=== PATIENT | male | born 1955 | race Caucasian/White ===

== ENCOUNTER 2017-12-05 11:36 | Inpatient (IN) | payer OTHER ==
--- NOTE | 2017-12-05 12:50 | PDOC ---
History of Present Illness - General Chief Complaint: Injury Stated Complaint: TOE INJURY Time Seen by Provider: 12/05/17 12:00 History Source: Patient Exam Limitations: No Limitations - History of Present Illness Initial Comments: 12/05/17 12:42 62 yr male with c/o toe injury one week ago dropped a garbage can on the foot. Pt has pain and swelling. Past History - Past Medical History Allergies/Adverse Reactions: Allergies Allergy/AdvReac Type Severity Reaction Status Date / Time No Known Allergies Allergy Verified 12/05/17 11:43 Home Medications: Ambulatory Orders Finasteride 5 mg PO DAILY 05/07/15 Lisinopril/Hydrochlorothiazide [Lisinopril-Hctz 10-12.5 mg Tab] 1 each PO DAILY 05/07/15 Metoprolol Succinate [Toprol XL -] 100 mg PO DAILY 05/07/15 Simvastatin [Zocor -] 20 mg PO HS 05/07/15 Tamsulosin HCl 0.4 mg PO DAILY 05/07/15 Warfarin Na [Coumadin -] 9 mg PO DAILY@1800 12/05/17 Cardiac Disorders: Yes (P.E) COPD: No Disorders: Yes (ENLARGED PROSTATE.) HTN: Yes - Surgical History Cardiac Surgery: Yes (3 STENTS. B/L CAROTID ENDARDERECOMTIES.) - Suicide/Smoking/Psychosocial Hx Smoking History: Never smoked Have you smoked in the past 12 months: No Information on smoking cessation initiated: No Hx Alcohol Use: No Drug/Substance Use Hx: No Substance Use Type: None Hx Substance Use Treatment: No *Physical Exam - Vital Signs Last Vital Signs Temp Pulse Resp BP Pulse Ox 98.0 F 85 18 136/86 100 12/05/17 11:43 12/05/17 11:43 12/05/17 11:43 12/05/17 11:43 12/05/17 11:43 - Physical Exam General Appearance: Yes: Nourished, Appropriately Dressed HEENT: positive: EOMI, SABRINA Neck: positive: Supple. negative: Tender Respiratory/Chest: positive: Lungs Clear, Normal Breath Sounds. negative: Chest Tender Cardiovascular: positive: Regular Rhythm, Regular Rate Extremity: positive: Normal Capillary Refill, Tender (right great toe TTP with swelling, erythema ) Integumentary: positive: Normal Color, Dry, Warm Neurologic: positive: Fully Oriented, Alert, Normal Mood/Affect, Normal Response , Motor Strength 01/14 ED Treatment Course - LABORATORY CBC & Chemistry Diagram: 12/05/17 16:30 12/05/17 16:30 - RADIOLOGY Radiology Studies Ordered: Category Date Time Status FOOT-RIGHT [RAD] Stat Radiology 12/05/17 12:21 Ordered Medical Decision Making - Medical Decision Making 12/05/17 12:42 cc: right foot injury one week ago will get xray to r/o fracture will check INR possible r/o DVT if xray is negative 12/05/17 15:44 spoke to pt's PMD who agrees pt should be admitted and started on heparin , aware pt id on coumaidn and is therapuetic. pt aware signed out to Ronel Saenz NP in the main ER nurse Leatha zhu. pt placed in vertical 12/05/17 16:45 *DC/Admit/Observation/Transfer Diagnosis at time of Disposition: Popliteal artery occlusion, right Cellulitis Qualifiers: Site of cellulitis: extremity Site of cellulitis of extremity: lower extremity Laterality: right Qualified Code(s): L03.115 - Cellulitis of right lower limb - Discharge Dispostion Condition at time of disposition: Stable - Referrals - Patient Instructions - Post Discharge Activity
[2017-12-05 13:44] LABS: INR 3.01 (0.82-1.09)
[2017-12-05 16:54] LABS: HEMATOCRIT 44.3 % (35.4-49); HEMOGLOBIN 14.9 GM/dL (11.7-16.9); MCH 30.3 pg (25.7-33.7); MCHC 33.7 g/dl (32.0-35.9); MEAN CELL VOLUME 89.8 fl (80-96); MEAN PLT VOLUME 8.5 fl (7.5-11.1); PLATELET COUNT 223 K/MM3 (134-434); RBC 4.93 M/mm3 (4.00-5.60); RDW 14.5 % (11.9-15.9); WHITE BLOOD COUNT 7.6 K/mm3 (4.0-10.0)
[2017-12-05 17:41] LABS: ALBUMIN 4.2 g/dl (3.4-5.0); ANION GAP 9 (8-16); BILIRUBIN,TOTAL 0.4 mg/dL (0.2-1.0); BLOOD UREA NITROGEN 19 mg/dL (7-18); CHLORIDE 101 mmol/L (98-107); CO2 29 mmol/L (21-32); CREATININE 1.1 mg/dL (0.7-1.3); GLUCOSE,RANDOM 93 mg/dL (74-106); POTASSIUM 4.1 mmol/L (3.5-5.1); SGOT/AST 13 U/L (15-37); SGPT/ALT 22 U/L (12-78); SODIUM 139 mmol/L (136-145); TOT PROT 7.4 g/dl (6.4-8.2)
[2017-12-05 17:42] LABS: ALK PHOS 59 U/L (45-117)
--- NOTE | 2017-12-05 18:35 | PDOC ---
*Physical Exam - Vital Signs Last Vital Signs Temp Pulse Resp BP Pulse Ox 98.0 F 85 18 136/86 100 12/05/17 11:43 12/05/17 11:43 12/05/17 11:43 12/05/17 11:43 12/05/17 11:43 - Physical Exam Comments: 12/05/17 18:17 Patient was sent from the back in fast track after being found to have a positive new interval development of a thrombus to the right popliteal vein as well as the length of the right femoral vein which may be chronic based on his representation. The request was for the patient to be admitted per the attending , Dr. Ibarra. After several attempts for me to reach out to Dr. Ibarra to discuss the case further and after discussing the case with the patient patient decision to be admitted for observation with a vascular surgeon consult for possible thrombectomy with possible conversion from INR to PTT with Coumadin versus heparin. Call placed for hospitalist for observation admission. ED Treatment Course - LABORATORY CBC & Chemistry Diagram: 12/05/17 16:30 12/05/17 16:30 - ADDITIONAL ORDERS Additional order review: Laboratory Results 12/05/17 12/05/17 12/05/17 16:30 16:30 13:27 PT with INR 34.00 H INR 3.01 H PTT (Actin FS) 51.8 H Sodium 139 Potassium 4.1 Chloride 101 Carbon Dioxide 29 Anion Gap 9 BUN 19 H D Creatinine 1.1 Creat Clearance w eGFR > 60 Random Glucose 93 Calcium 9.0 Total Bilirubin 0.4 AST 13 L D ALT 22 D Alkaline Phosphatase 59 Total Protein 7.4 D Albumin 4.2 D 12/05/17 16:30 RBC 4.93 D MCV 89.8 MCHC 33.7 RDW 14.5 MPV 8.5 *DC/Admit/Observation/Transfer Diagnosis at time of Disposition: Popliteal artery occlusion, right - Discharge Dispostion Condition at time of disposition: Stable Admit: Yes - Referrals Referrals: Cuba Tello MD [Primary Care Provider] - - Patient Instructions - Post Discharge Activity
--- NOTE | 2017-12-05 19:32 | PDOC ---
*Physical Exam - Vital Signs Last Vital Signs Temp Pulse Resp BP Pulse Ox 98.0 F 85 18 136/86 100 12/05/17 11:43 12/05/17 11:43 12/05/17 11:43 12/05/17 11:43 12/05/17 11:43 ED Treatment Course - LABORATORY CBC & Chemistry Diagram: 12/05/17 16:30 12/05/17 16:30 - ADDITIONAL ORDERS Additional order review: Laboratory Results 12/05/17 12/05/17 12/05/17 16:30 16:30 13:27 PT with INR 34.00 H INR 3.01 H PTT (Actin FS) 51.8 H Sodium 139 Potassium 4.1 Chloride 101 Carbon Dioxide 29 Anion Gap 9 BUN 19 H D Creatinine 1.1 Creat Clearance w eGFR > 60 Random Glucose 93 Calcium 9.0 Total Bilirubin 0.4 AST 13 L D ALT 22 D Alkaline Phosphatase 59 Total Protein 7.4 D Albumin 4.2 D 12/05/17 16:30 RBC 4.93 D MCV 89.8 MCHC 33.7 RDW 14.5 MPV 8.5 Medical Decision Making - Medical Decision Making 12/05/17 19:35 patient signed out to Dr. Dupont. pending admission. *DC/Admit/Observation/Transfer Diagnosis at time of Disposition: Popliteal artery occlusion, right - Discharge Dispostion Condition at time of disposition: Stable Admit: Yes - Referrals Referrals: Cuba Tello MD [Primary Care Provider] - - Patient Instructions - Post Discharge Activity
--- NOTE | 2017-12-05 20:58 | HP ---
Admitting History and Physical - Primary Care Physician PCP: Rosario Dupont - Admission Chief Complaint: garbage can fell on R foot History of Present Illness: Patient was sent from the back in fast track after being found to have a positive new interval development of a thrombus to the right popliteal vein as well as the length of the right femoral vein which may be chronic based on his representation. The request was for the patient to be admitted per the attending , Dr. Ibarra. - Past Medical History Cardiovascular: Yes: CAD Renal/: Yes: BPH - Past Surgical History Past Surgical History: Yes: Carotid Endarterectomy - Smoking History Smoking history: Never smoked Have you smoked in the past 12 months: No - Alcohol/Substance Use Hx Alcohol Use: No Home Medications - Allergies Allergies/Adverse Reactions: Allergies Allergy/AdvReac Type Severity Reaction Status Date / Time No Known Allergies Allergy Verified 12/05/17 11:43 - Home Medications Home Medications: Ambulatory Orders Finasteride 5 mg PO DAILY 05/07/15 Lisinopril/Hydrochlorothiazide [Lisinopril-Hctz 10-12.5 mg Tab] 1 each PO DAILY 05/07/15 Metoprolol Succinate [Toprol XL -] 100 mg PO DAILY 05/07/15 Simvastatin [Zocor -] 20 mg PO HS 05/07/15 Tamsulosin HCl 0.4 mg PO DAILY 05/07/15 Warfarin Na [Coumadin -] 9 mg PO DAILY@1800 12/05/17 Family Disease History - Family Disease History Family Disease History: CA: Mother (ovarian) Physical Examination Vital Signs: Vital Signs Temperature 98.0 F 12/05/17 11:43 Pulse Rate 85 12/05/17 11:43 Respiratory Rate 18 12/05/17 11:43 Blood Pressure 136/86 12/05/17 11:43 O2 Sat by Pulse Oximetry (%) 100 12/05/17 11:43 Constitutional: Yes: No Distress HENT: Yes: Atraumatic Neck: Yes: Supple Cardiovascular: Yes: Regular Rate and Rhythm Respiratory: Yes: CTA Bilaterally Gastrointestinal: Yes: Normal Bowel Sounds Extremities: Yes: Other (R foot ...big toe red/warm) Edema: RLE: 1+ (R foot) Neurological: Yes: Alert, Oriented Labs: CBC, BMP 12/05/17 16:30 12/05/17 16:30 Problem List - Problems (1) Popliteal artery occlusion, right Assessment/Plan: probably old have been on coumadin will get hematology opinion Code(s): I70.201 - UNSP ATHSCL [place] ARTERIES OF EXTREMITIES, RIGHT LEG (2) Cellulitis of right foot Assessment/Plan: iv abx id consult xray done Code(s): L03.115 - CELLULITIS OF RIGHT LOWER LIMB Assessment/Plan Laboratory Tests 12/05/17 12/05/17 12/05/17 13:27 16:30 16:30 WBC 7.6 RBC 4.93 D Hgb 14.9 D Hct 44.3 D MCV 89.8 MCH 30.3 MCHC 33.7 RDW 14.5 Plt Count 223 D MPV 8.5 PT with INR 34.00 H INR 3.01 H PTT (Actin FS) Sodium 139 Potassium 4.1 Chloride 101 Carbon Dioxide 29 Anion Gap 9 BUN 19 H D Creatinine 1.1 Creat Clearance w eGFR > 60 Random Glucose 93 Calcium 9.0 Total Bilirubin 0.4 AST 13 L D ALT 22 D Alkaline Phosphatase 59 Total Protein 7.4 D Albumin 4.2 D 12/05/17 16:30 WBC RBC Hgb Hct MCV MCH MCHC RDW Plt Count MPV PT with INR INR PTT (Actin FS) 51.8 H Sodium Potassium Chloride Carbon Dioxide Anion Gap BUN Creatinine Creat Clearance w eGFR Random Glucose Calcium Total Bilirubin AST ALT Alkaline Phosphatase Total Protein Albumin Active Medications Generic Name Dose Route Start Last Admin Trade Name Freq PRN Reason Stop Dose Admin Atorvastatin Calcium 10 mg 12/05/17 22:00 Lipitor - PO HS PEREZ Enoxaparin Sodium 100 mg 12/05/17 22:00 Lovenox - SQ BID PEREZ Finasteride 5 mg 12/06/17 10:00 Proscar - PO DAILY PEREZ Hydrochlorothiazide 12.5 mg 12/06/17 10:00 Hctz - PO DAILY PEREZ Lisinopril 10 mg 12/06/17 10:00 Prinivil PO DAILY PEREZ Metoprolol Succinate 100 mg 12/06/17 10:00 Toprol Xl - PO DAILY [facility] Tamsulosin HCl 0.4 mg 12/06/17 08:30 Flomax - PO DAILY@0830 [facility]
[2017-12-05] MEDS ORDERED: WARFARIN NA 7.5 MG TABLET (FP) PO ONE (21:45)
[2017-12-05] MEDS ORDERED: ENOXAPARIN NA (PORCINE) 100 MG/1 ML DISP.SYRIN SQ SCH (22:00)
[2017-12-05] MEDS ORDERED: CEFTRIAXONE 1 GM/50 ML BAG ONE (22:22)
[2017-12-05] MEDS: ATORVASTATIN CA 10 MG TABLET (FP) PO SCH (22:40)
[2017-12-05] MEDS: CEFTRIAXONE 1 GM in DEXTROSE 5%-WATER - 50 ML IVPB SCH (23:00)
--- NOTE | 2017-12-05 23:45 | CONSULT ---
Consult - text type - Consultation Consultation Note: 62 yr male with c/o toe injury one week ago dropped a garbage can on the foot. Pt has pain and swelling. rt. toe/foot Duplex shows new dital popliteal DVT and probable chronic rt. 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 followed by Dr. Fred mckoy Disorders: Yes (ENLARGED PROSTATE.) HTN: Yes hyperlipidemia CAD h/o coronary stent h/o carotid endarterectomies - Surgical History Cardiac Surgery: Yes (3 STENTS. B/L CAROTID ENDARDERECOMTIES.) - Suicide/Smoking/Psychosocial Hx Smoking History: Never smoked Family history Mother had ovarian cancer *Physical Exam - Vital Signs Last Vital Signs Temp Pulse Resp BP Pulse Ox 98.0 F 85 18 136/86 100 12/05/17 11:43 12/05/17 11:43 12/05/17 11:43 12/05/17 11:43 12/05/17 11:43 - Physical Exam General Appearance: Yes: Nourished, Appropriately Dressed HEENT: positive: EOMI, SABRINA Neck: positive: Supple. negative: Tender Respiratory/Chest: positive: Lungs Clear, Normal Breath Sounds. 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 foot, ? cellulitis + new distal popliteal DVT, and probable chronic rt. femoral DVT Patient reports therapeutic INRs on 9mg coumadin daily---last being 1 month ago. INR today -2.9. s/p coumadin 7.5mg Given clinical scenario --? failure of coumadin given therapeutic INRs and new popliteal DVT would consider holding off coumadin and switcxhing to lovenox would check CT scan c/a/p given recent wt. loss( reports intentionsl) but given recurrent DVt would check age appropriate cancer screening as out patient--colonoscopy/prostate exam
[2017-12-06 00:22] LABS: INR 2.9 (0.82-1.09); PROTHROMBIN TIME (PATIENT) 32.8 SEC (9.98-11.88)
[2017-12-06] MEDS: SODIUM CHLORIDE 1,000 ML IV SCH (03:38)
[2017-12-06] MEDS ORDERED: oxyCODONE HCL 5 MG TABLET PO ONE (04:15)
[2017-12-06] MEDS ORDERED: ACETAMINOPHEN 325 MG TABLET (FP) PO ONE (04:15)
[2017-12-06 07:11] VITALS: BMI 32.1
[2017-12-06 07:57] LABS: BASO % 0.8 % (0-2.0); EOS % 4.9 % (0-4.5); HEMATOCRIT 41.2 % (35.4-49); HEMOGLOBIN 13.6 GM/dL (11.7-16.9); LYMPH % 20.4 % (8-40); MCH 29.8 pg (25.7-33.7); MEAN CELL VOLUME 90.3 fl (80-96); NEUT % 57.9 % (42.8-82.8); PLATELET COUNT 215 K/MM3 (134-434); RBC 4.56 M/mm3 (4.00-5.60); RDW 14.5 % (11.9-15.9)
[2017-12-06 08:09] LABS: INR 2.83 (0.82-1.09)
[2017-12-06 08:15] LABS: CHLORIDE 103 mmol/L (98-107); POTASSIUM 3.4 mmol/L (3.5-5.1); SODIUM 138 mmol/L (136-145)
[2017-12-06 08:20] LABS: ALBUMIN 3.5 g/dl (3.4-5.0); ALK PHOS 53 U/L (45-117); ANION GAP 5 (8-16); BILIRUBIN,TOTAL 0.2 mg/dL (0.2-1.0); BLOOD UREA NITROGEN 22 mg/dL (7-18); CALCIUM 8.3 mg/dL (8.5-10.1); CO2 30 mmol/L (21-32); CREATININE 1.2 mg/dL (0.7-1.3); GLUCOSE,RANDOM 137 mg/dL (74-106); SGOT/AST 10 U/L (15-37); SGPT/ALT 17 U/L (12-78); TOT PROT 6.2 g/dl (6.4-8.2)
[2017-12-06] MEDS: HYDROCHLOROTHIAZIDE 12.5 MG CAPSULE (FP) PO SCH (09:18)
[2017-12-06] MEDS: TAMSULOSIN HCL 0.4 MG CAP.ER.24H (FP) PO SCH (09:18)
[2017-12-06] MEDS: LISINOPRIL 10 MG TABLET (FP) PO SCH (09:18)
[2017-12-06] MEDS: FINASTERIDE 5 MG TABLET (FP) PO SCH (09:18)
[2017-12-06] MEDS ORDERED: PATIENT'S OWN MEDICATION (NON-FORMULARY) (Lisinopril/Hydrochlorothiazide [Lisinopril-Hctz PO SCH (10:00)
--- NOTE | 2017-12-06 10:58 | CONSULT ---
Consult - History of Present Illness History of Present Illness: 62 year old man with history of right leg DVT and PE in 2015 treated by pulmonary thrombolysis and placement of permanent IVC filter. He has remained on Coumadin with therapeutic INR. He was admitted for right toe pin after dropping a garbage pain on his foot. A repeat Venous Duplex showed the old thrombus in the femoral vein and was read as showing new DVT. - Past Medical History Cardio/Vascular: Yes: CAD Renal/: Yes: BPH - Past Surgical History Past Surgical History: Yes: Carotid Endarterectomy - Alcohol/Substance Use Hx Alcohol Use: No - Smoking History Smoking history: Never smoked Have you smoked in the past 12 months: No Home Medications - Allergies Allergies/Adverse Reactions: Allergies Allergy/AdvReac Type Severity Reaction Status Date / Time No Known Allergies Allergy Verified 12/05/17 11:43 - Home Medications Home Medications: Ambulatory Orders Finasteride 5 mg PO DAILY 05/07/15 Lisinopril/Hydrochlorothiazide [Lisinopril-Hctz 10-12.5 mg Tab] 1 each PO DAILY 05/07/15 Metoprolol Succinate [Toprol XL -] 100 mg PO DAILY 05/07/15 Simvastatin [Zocor -] 20 mg PO HS 05/07/15 Tamsulosin HCl 0.4 mg PO DAILY 05/07/15 Warfarin Na [Coumadin -] 9 mg PO DAILY@1800 12/05/17 Family Disease History - Family Disease History Family Disease History: CA: Mother (ovarian) Physical Exam Vital Signs: Vital Signs Temperature 97.8 F 12/06/17 10:08 Pulse Rate 76 12/06/17 10:08 Respiratory Rate 18 12/06/17 10:08 Blood Pressure 131/73 12/06/17 10:08 O2 Sat by Pulse Oximetry (%) 98 12/06/17 05:27 Constitutional: Yes: No Distress Gastrointestinal: Yes: Soft Extremities: Yes: Other (Tender right 1st toe at MTP joint) Edema: Yes Edema: LLE: 1+, RLE: 1+ Labs: CBC, BMP 12/06/17 06:35 12/06/17 06:35 Imaging - Results Ultrasound: Image Reviewed Problem List - Problems (1) DVT, femoral, chronic Assessment/Plan: Old DVT right FV. No need for additional anticoagulation. If not already done, he should have hypercoagulable work-up. Standard of care would have been to stop his oral anticoagulant after 12-24 months after unprovoked PE. D-Dimer assay ordered to see if there is evidence for on-going thrombosis. Code(s): I82.519 - CHRONIC EMBOLISM AND THROMBOSIS OF UNSPECIFIED FEMORAL VEIN Qualifiers: Laterality: right Qualified Code(s): I82.511 - Chronic embolism and thrombosis of right femoral vein
--- NOTE | 2017-12-06 13:32 | CON.ID ---
Consult Consult Specialty:: infectious diseses Reason for Consultation:: cellulitis of the right foot - History of Present Illness Chief Complaint: pain and swelling of the rt foot History of Present Illness: 62 yr male with c/o toe injury one week ago dropped a garbage can on the foot. Pt has pain and swelling. of the foot.patient did not take any medications or abx but used ice for the week. It worried him that inspite of the ice the erythema warmth and redness did not improve and patient decided to come to the hospital in the hospital patient was started on iv abx. patient still has swellig but pain and redness better he has a history of right leg DVT and PE in 2015 treated by pulmonary thrombolysis and placement of permanent IVC filter. He has remained on Coumadin with therapeutic INR. - History Source History Provided By: Patient Limitations to Obtaining History: No Limitations - Past Medical History Cardio/Vascular: Yes: CAD Renal/: Yes: BPH - Past Surgical History Past Surgical History: Yes: Carotid Endarterectomy - Alcohol/Substance Use Hx Alcohol Use: No - Smoking History Smoking history: Never smoked Have you smoked in the past 12 months: No Home Medications - Allergies Allergies/Adverse Reactions: Allergies Allergy/AdvReac Type Severity Reaction Status Date / Time No Known Allergies Allergy Verified 12/05/17 11:43 - Home Medications Home Medications: Ambulatory Orders Finasteride 5 mg PO DAILY 05/07/15 Lisinopril/Hydrochlorothiazide [Lisinopril-Hctz 10-12.5 mg Tab] 1 each PO DAILY 05/07/15 Metoprolol Succinate [Toprol XL -] 100 mg PO DAILY 05/07/15 Simvastatin [Zocor -] 20 mg PO HS 05/07/15 Tamsulosin HCl 0.4 mg PO DAILY 05/07/15 Warfarin Na [Coumadin -] 9 mg PO DAILY@1800 12/05/17 Family Disease History - Family Disease History Family Disease History: CA: Mother (ovarian) Review of Systems - Review of Systems Constitutional: reports: No Symptoms Eyes: reports: No Symptoms HENT: reports: No Symptoms Neck: reports: No Symptoms Cardiovascular: reports: No Symptoms Respiratory: reports: No Symptoms Gastrointestinal: reports: No Symptoms Musculoskeletal: reports: Muscle Pain, Other Integumentary: reports: Erythema (rt foot) Neurological: reports: No Symptoms Endocrine: reports: No Symptoms Hematology/Lymphatic: reports: No Symptoms Psychiatric: reports: No Symptoms Physical Exam Vital Signs: Vital Signs Temperature 97.8 F 12/06/17 10:08 Pulse Rate 76 12/06/17 10:08 Respiratory Rate 18 12/06/17 10:08 Blood Pressure 131/73 12/06/17 10:08 O2 Sat by Pulse Oximetry (%) 98 12/06/17 05:27 Constitutional: Yes: Well Nourished, No Distress, Calm HENT: Yes: Atraumatic, Normocephalic Neck: Yes: Supple, Trachea Midline Cardiovascular: Yes: Regular Rate and Rhythm, S1, S2 Respiratory: Yes: Regular, CTA Bilaterally Gastrointestinal: Yes: Normal Bowel Sounds, Soft Musculoskeletal: Yes: Other Extremities: Yes: Erythema (rt foot), Other (swelling of the rt foot) Edema: RLE: 1+ Integumentary: Yes: Erythema (rt foot) Neurological: Yes: Alert, Oriented Psychiatric: Yes: Alert, Oriented Labs: CBC, BMP 12/06/17 06:35 12/06/17 06:35 Imaging - Results Chest X-ray: Report Reviewed, Image Reviewed X-ray: Report Reviewed, Image Reviewed Cat Scan: Image Reviewed (awaiting results) Assessment/Plan Problem List - Problems (1) Popliteal artery occlusion, right Code(s): I70.201 - UNSP ATHSCL [place] ARTERIES OF EXTREMITIES, RIGHT LEG (2) Cellulitis of right foot Code(s): L03.115 - CELLULITIS OF RIGHT LOWER LIMB plan continue ceftriaxone for now continue monitoring [facility] seen the patient await for all results
--- NOTE | 2017-12-06 14:16 | PN ---
Progress Note (short form) - Note Progress Note: pt seen and examined chart reviewed in detail. All consult notes reviewed Pt feels better in the LE. General Appearance: NAD HEENT: NCAT Neck: Supple. Respiratory/Chest: Lungs Clear, Normal Breath Sounds. Cardiovascular: Regular Rhythm, Regular Rate Extremity: right great toe TTP with swelling, erythema Last Vital Signs Temp Pulse Resp BP Pulse Ox 97.8 F 76 18 131/73 98 12/06/17 10:08 12/06/17 10:08 12/06/17 10:08 12/06/17 10:08 12/06/17 05:27 CBC, BMP 12/06/17 06:35 12/06/17 06:35 Current Medications Generic Name Dose Route Start Last Admin Trade Name Freq PRN Reason Stop Dose Admin Atorvastatin Calcium 10 mg 12/05/17 22:00 12/05/17 22:40 Lipitor - PO 10 mg HS PEREZ Administration Finasteride 5 mg 12/06/17 10:00 12/06/17 09:18 Proscar - PO 5 mg DAILY PEREZ Administration Hydrochlorothiazide 12.5 mg 12/06/17 10:00 12/06/17 09:18 Hctz - PO 12.5 mg DAILY PEREZ Administration Ceftriaxone Sodium 1 gm/ 50 mls @ 100 mls/hr 12/05/17 22:00 12/05/17 23:00 Dextrose IVPB 100 mls/hr DAILY PEREZ Administration Sodium Chloride 1,000 mls @ 42 mls/hr 12/06/17 02:15 12/06/17 03:38 Normal Saline - IV 42 mls/hr ASDIR PEREZ Administration Lisinopril 10 mg 12/06/17 10:00 12/06/17 09:18 Prinivil PO 10 mg DAILY PEREZ Administration Metoprolol Succinate 100 mg 12/06/17 10:00 12/06/17 09:18 Toprol Xl - PO 100 mg DAILY PEREZ Administration Tamsulosin HCl 0.4 mg 12/06/17 08:30 12/06/17 09:18 Flomax - PO 0.4 mg DAILY@0830 PEREZ Administration reviewed vascular consult recs, noted that it is the old DVT will be c/w Warfarin d.w pt in detail for OP fu/hypercoag w/u if not done CT c/a/p reviewed, no evidence of malignancy ensure OP f.u with Pulm (0.6cm lungnodule) and ( Prostate enlargement )
--- NOTE | 2017-12-06 17:02 | EKG ---
Test Reason : Blood Pressure : / mmHG Vent. Rate : 067 BPM Atrial Rate : 067 BPM P-R Int : 200 ms QRS Dur : 084 ms QT Int : 392 ms P-R-T Axes : 047 -01 -10 degrees QTc Int : 414 ms POOR DATA QUALITY, INTERPRETATION MAY BE ADVERSELY AFFECTED NORMAL SINUS RHYTHM POSSIBLE INFERIOR INFARCT (CITED ON OR BEFORE 07-MAY-2015) ABNORMAL ECG WHEN COMPARED WITH ECG OF 07-MAY-2015 14:26, VENT. RATE HAS DECREASED BY 37 BPM CRITERIA FOR SEPTAL INFARCT ARE NO LONGER PRESENT Confirmed by MD Lluvia, Norris ([id number]) on 12/06/2017 5:01:58 PM Referred By: Confirmed By:Norris Teixeira MD
--- NOTE | 2017-12-06 17:12 | PN ---
Progress Note, Physician History of Present Illness: doing well - Current Medication List Current Medications: Active Medications Atorvastatin Calcium (Lipitor -) 10 mg PO [facility] Last Admin: 12/05/17 22:40 Dose: 10 mg Finasteride (Proscar -) 5 mg PO DAILY [facility] Last Admin: 12/06/17 09:18 Dose: 5 mg Hydrochlorothiazide (Hctz -) 12.5 mg PO DAILY [facility] Last Admin: 12/06/17 09:18 Dose: 12.5 mg Ceftriaxone Sodium 1 gm/ (Dextrose) 50 mls @ 100 mls/hr IVPB DAILY [facility] Last Admin: 12/05/17 23:00 Dose: 100 mls/hr Sodium Chloride (Normal Saline -) 1,000 mls @ 42 mls/hr IV ASDIR [facility] Last Admin: 12/06/17 03:38 Dose: 42 mls/hr Lisinopril (Prinivil) 10 mg PO DAILY [facility] Last Admin: 12/06/17 09:18 Dose: 10 mg Metoprolol Succinate (Toprol Xl -) 100 mg PO DAILY [facility] Last Admin: 12/06/17 09:18 Dose: 100 mg Tamsulosin HCl (Flomax -) 0.4 mg PO DAILY@0830 [facility] Last Admin: 12/06/17 09:18 Dose: 0.4 mg Warfarin Sodium (Coumadin -) 7.5 mg PO DAILY@1800 [facility] - Objective Vital Signs: Vital Signs Temperature 97.9 F 12/06/17 14:05 Pulse Rate 64 12/06/17 14:05 Respiratory Rate 20 12/06/17 14:05 Blood Pressure 129/74 12/06/17 14:05 O2 Sat by Pulse Oximetry (%) 98 12/06/17 09:00 Constitutional: Yes: No Distress HENT: Yes: Atraumatic Neck: Yes: Supple Cardiovascular: Yes: Regular Rate and Rhythm Respiratory: Yes: CTA Bilaterally Gastrointestinal: Yes: Normal Bowel Sounds Extremities: Yes: Other (R foot cellulitis) Neurological: Yes: Alert Labs: CBC, BMP 12/06/17 06:35 12/06/17 06:35 INR, PTT INR 2.83 (0.82-1.09) H 12/06/17 06:35 Problem List - Problems (1) Popliteal artery occlusion, right Assessment/Plan: probably old have been on coumadin will get hematology opinion Code(s): I70.201 - UNSP ATHSCL [place] ARTERIES OF EXTREMITIES, RIGHT LEG (2) Cellulitis of right foot Assessment/Plan: iv abx id consult xray done Code(s): L03.115 - CELLULITIS OF RIGHT LOWER LIMB
[2017-12-06] MEDS ORDERED: WARFARIN NA 2.5 MG TABLET (FP) PO SCH (18:00)
[2017-12-06] MEDS ORDERED: WARFARIN NA 7.5 MG TABLET (FP) PO SCH ×2 (18:00)
[2017-12-06] MEDS ORDERED: WARFARIN NA 5 MG TABLET (UD) PO SCH (18:00)
[2017-12-06] MEDS ORDERED: INSULIN (NOVOLOG) ASPART 100 UNITS/ML 10ML VIAL ONE (21:00)
[2017-12-06] MEDS ORDERED: INSULIN DETEMIR 100 UNITS/ML MDV SQ ONE (21:00)
[2017-12-06] MEDS: ATORVASTATIN CA 10 MG TABLET (FP) PO SCH (21:29)
[2017-12-06] MEDS: oxyCODONE HCL 5 MG TABLET PO PRN (21:29)
[2017-12-06] MEDS ORDERED: ENOXAPARIN NA (PORCINE) 100 MG/1 ML DISP.SYRIN SQ SCH (22:00)
[2017-12-07] MEDS: SODIUM CHLORIDE 1,000 ML IV SCH (04:04)
[2017-12-07] MEDS: oxyCODONE HCL 5 MG TABLET PO PRN (07:03)
[2017-12-07 07:22] LABS: BASO % 0.7 % (0-2.0); EOS % 5.5 % (0-4.5); HEMATOCRIT 41.9 % (35.4-49); HEMOGLOBIN 13.9 GM/dL (11.7-16.9); LYMPH % 20.1 % (8-40); MCH 30.1 pg (25.7-33.7); MCHC 33.2 g/dl (32.0-35.9); MEAN CELL VOLUME 90.5 fl (80-96); MEAN PLT VOLUME 7.9 fl (7.5-11.1); MONO % 12.6 % (3.8-10.2); NEUT % 61.1 % (42.8-82.8); PLATELET COUNT 213 K/MM3 (134-434); RBC 4.63 M/mm3 (4.00-5.60); RDW 14.7 % (11.9-15.9); WHITE BLOOD COUNT 6.8 K/mm3 (4.0-10.0)
[2017-12-07 07:52] LABS: INR 3.21 (0.82-1.09); PROTHROMBIN TIME (PATIENT) 36.3 SEC (9.98-11.88)
[2017-12-07 07:54] LABS: ACTIVATED PTT 50.9 SECONDS (26.9-34.4)
[2017-12-07] MEDS: TAMSULOSIN HCL 0.4 MG CAP.ER.24H (FP) PO SCH (08:33)
[2017-12-07] MEDS ORDERED: PT OWN MED DRAWER 7, Y5N ONE (09:30)
[2017-12-07] MEDS: HYDROCHLOROTHIAZIDE 12.5 MG CAPSULE (FP) PO SCH (09:38)
[2017-12-07] MEDS: LISINOPRIL 10 MG TABLET (FP) PO SCH (09:38)
[2017-12-07] MEDS: FINASTERIDE 5 MG TABLET (FP) PO SCH (09:38)
[2017-12-07] MEDS: CEFTRIAXONE 1 GM in DEXTROSE 5%-WATER - 50 ML IVPB SCH (09:39)
[2017-12-07 15:09] VITALS: BP 145/81; PULSE 67; TEMP 97.8
--- NOTE | 2017-12-07 15:44 | PN ---
Progress Note, Physician History of Present Illness: doing well - Current Medication List Current Medications: Active Medications Atorvastatin Calcium (Lipitor -) 10 mg PO HS [facility] Last Admin: 12/06/17 21:29 Dose: 10 mg Finasteride (Proscar -) 5 mg PO DAILY [facility] Last Admin: 12/07/17 09:38 Dose: 5 mg Hydrochlorothiazide (Hctz -) 12.5 mg PO DAILY [facility] Last Admin: 12/07/17 09:38 Dose: 12.5 mg Ceftriaxone Sodium 1 gm/ (Dextrose) 50 mls @ 100 mls/hr IVPB DAILY [facility] Last Admin: 12/07/17 09:39 Dose: 100 mls/hr Sodium Chloride (Normal Saline -) 1,000 mls @ 42 mls/hr IV ASDIR [facility] Last Admin: 12/07/17 04:04 Dose: 42 mls/hr Lisinopril (Prinivil) 10 mg PO DAILY [facility] Last Admin: 12/07/17 09:38 Dose: 10 mg Metoprolol Succinate (Toprol Xl -) 100 mg PO DAILY [facility] Last Admin: 12/07/17 09:38 Dose: 100 mg Oxycodone HCl (Roxicodone -) 10 mg PO Q6H PRN PRN Reason: PAIN Last Admin: 12/07/17 07:03 Dose: 10 mg Tamsulosin HCl (Flomax -) 0.4 mg PO DAILY@0830 [facility] Last Admin: 12/07/17 08:33 Dose: 0.4 mg Warfarin Sodium (Coumadin -) 7.5 mg PO DAILY@1800 [facility] Last Admin: 12/06/17 17:14 Dose: 7.5 mg - Objective Vital Signs: Vital Signs Temperature 97.8 F 12/07/17 14:08 Pulse Rate 67 12/07/17 14:08 Respiratory Rate 22 12/07/17 14:08 Blood Pressure 145/81 12/07/17 14:08 O2 Sat by Pulse Oximetry (%) 98 12/07/17 09:00 Constitutional: Yes: No Distress HENT: Yes: Atraumatic Neck: Yes: Supple Cardiovascular: Yes: Regular Rate and Rhythm Respiratory: Yes: CTA Bilaterally Gastrointestinal: Yes: Normal Bowel Sounds Extremities: Yes: Other (R foot /thumb looks much better) Peripheral Pulses WNL: Yes Neurological: Yes: Alert, Oriented Labs: CBC, BMP 12/07/17 07:10 12/06/17 06:35 INR, PTT INR 3.21 (0.82-1.09) H 12/07/17 07:10 Problem List - Problems (1) Popliteal artery occlusion, right Assessment/Plan: probably old on coumadin Code(s): I70.201 - UNSP ATHSCL YOMBA SHOSHONE ARTERIES OF EXTREMITIES, RIGHT LEG (2) Cellulitis of right foot Assessment/Plan: will switch to po dc home Code(s): L03.115 - CELLULITIS OF RIGHT LOWER LIMB
--- NOTE | 2017-12-07 16:53 | DS ---
Physical Examination Vital Signs: Vital Signs Temperature 97.8 F 12/07/17 14:08 Pulse Rate 67 12/07/17 14:08 Respiratory Rate 22 12/07/17 14:08 Blood Pressure 145/81 12/07/17 14:08 O2 Sat by Pulse Oximetry (%) 98 12/07/17 09:00 Constitutional: Yes: No Distress HENT: Yes: Atraumatic Neck: Yes: Supple Cardiovascular: Yes: Regular Rate and Rhythm Respiratory: Yes: CTA Bilaterally Gastrointestinal: Yes: Normal Bowel Sounds Extremities: Yes: Other (R foot cellulitis resolving) Neurological: Yes: Alert, Oriented Labs: CBC, BMP 12/07/17 07:10 12/06/17 06:35 Discharge Summary Reason For Visit: DVT/OCCLUSION Current Active Problems Cellulitis (Acute) Cellulitis of right foot (Acute) DVT, femoral, chronic (Acute) Popliteal artery occlusion, right (Acute) Condition: Stable - Instructions Diet, Activity, Other Instructions: coumadin 7 mg po daily check inr weekly see id next week pmd 1 week Referrals: Kamilah Camp MD [Staff Physician] - Rosario Dupont MD [Staff Physician] - Cuba Tello MD [Primary Care Provider] - Ruben Evans MD [Staff Physician] - - Home Medications Comprehensive Discharge Medication List: Ambulatory Orders Finasteride 5 mg PO DAILY 05/07/15 Lisinopril/Hydrochlorothiazide [Lisinopril-Hctz 10-12.5 mg Tab] 1 each PO DAILY 05/07/15 Metoprolol Succinate [Toprol XL -] 100 mg PO DAILY 05/07/15 Simvastatin [Zocor -] 20 mg PO HS 05/07/15 Tamsulosin HCl 0.4 mg PO DAILY 05/07/15 Amoxicillin/Potassium Clav [Augmentin 875-125 Tablet] 1 each PO BID #20 tablet 12/07/17 Warfarin Sodium [Coumadin] 1 mg PO DAILY #90 tablet 12/07/17 Warfarin Sodium [Coumadin] 5 mg PO DAILY #30 tablet 12/07/17 take coumadin 7 mg po daily dc home
--- NOTE | 2017-12-08 13:16 | PN ---
Progress Note, Physician History of Present Illness: doing well no issues swelling on the leg much better patient feeling much better - Objective Vital Signs: Vital Signs Temperature 97.8 F 12/07/17 14:08 Pulse Rate 67 12/07/17 14:08 Respiratory Rate 22 12/07/17 14:08 Blood Pressure 145/81 12/07/17 14:08 O2 Sat by Pulse Oximetry (%) 98 12/07/17 09:00 Constitutional: Yes: No Distress, Calm Cardiovascular: Yes: Regular Rate and Rhythm Respiratory: Yes: Regular, CTA Bilaterally Gastrointestinal: Yes: Normal Bowel Sounds, Soft Musculoskeletal: Yes: WNL Extremities: Yes: Other (foot mildly swollen) Integumentary: Yes: Erythema (minimal) Neurological: Yes: Alert, Oriented Psychiatric: Yes: Alert, Oriented Labs: CBC, BMP 12/07/17 07:10 12/06/17 06:35 INR, PTT INR 3.21 (0.82-1.09) H 12/07/17 07:10 Assessment/Plan Problem List - Problems (1) Popliteal artery occlusion, right Code(s): I70.201 - UNSP ATHSCL [place] ARTERIES OF EXTREMITIES, RIGHT LEG (2) Cellulitis of right foot Code(s): L03.115 - CELLULITIS OF RIGHT LOWER LIMB plan can change to oral abx as discussed oral abx for couple of days rest as per the team swelling much better elevation of the leg
== END 2017-12-07 17:47 | disposition home or self-care (01) | DRG 603 ==
LOC: JERFT 11:36 → JER 11:36 → JERBED 20:05 → J5S 12-06 03:16
PROVIDERS: ADMIT Internal Medicine; ATTEND Internal Medicine
DX: L03.031 Cellulitis of right toe (principal); I82.511 Chronic embolism and thrombosis of right femoral vein; I82.531 Chronic embolism and thrombosis of right popliteal vein; L03.115 Cellulitis of right lower limb; I70.201 Unspecified atherosclerosis of native arteries of extremities, right leg; I10 Essential (primary) hypertension; E78.5 Hyperlipidemia, unspecified; I25.10 Atherosclerotic heart disease of native coronary artery without angina pectoris; Z98.61 Coronary angioplasty status
CPT/HCPCS: 36415; 71046-TC-FY; 71260-TC; 73630-TC-RT-FY; 74177-TC; 80053; 85025; 85027; 85379; 85610; 85730; 93005; 93010; 93971-TC; 99284-25; J7030

== ENCOUNTER 2019-06-07 10:57 | Emergency (ER) | payer OTHER ==
[2019-06-07 11:33] VITALS: BP 135/84; PULSE 72; TEMP 98.1; BMI 30.4
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
[2019-06-07] MEDS ORDERED: CYCLOBENZAPRINE HCL 10 MG TABLET (FP) PO ONE (13:37)
[2019-06-07] MEDS ORDERED: ACETAMINOPHEN 500 MG TABLET (FP) PO ONE (13:37)
[2019-06-07] MEDS ORDERED: ACETAMINOPHEN 325 MG TABLET (FP) ONE (13:49)
[2019-06-07] MEDS ORDERED: CYCLOBENZAPRINE HCL 10 MG TABLET (FP) ONE (13:49)
[2019-06-07 14:03] LABS: BASO % 0.6 % (0-2.0); EOS % 1.9 % (0-4.5); HEMATOCRIT 46.7 % (35.4-49); HEMOGLOBIN 15.4 GM/dL (11.7-16.9); LYMPH % 14.3 % (8-40); MCH 30.1 pg (25.7-33.7); MEAN CELL VOLUME 91.2 fl (80-96); MEAN PLT VOLUME 8.8 fl (7.5-11.1); MONO % 9.9 % (3.8-10.2); NEUT % 73.3 % (42.8-82.8); PLATELET COUNT 187 K/MM3 (134-434); RBC 5.12 M/mm3 (4.00-5.60); WHITE BLOOD COUNT 8.2 K/mm3 (4.0-10.0)
[2019-06-07 14:22] LABS: INR 1.66 (0.83-1.09); PROTHROMBIN TIME (PATIENT) 19.7 SEC (9.7-13.0)
[2019-06-07 14:38] LABS: ALBUMIN 4.1 g/dl (3.4-5.0); BILIRUBIN,TOTAL 0.6 mg/dL (0.2-1); BLOOD UREA NITROGEN 17.8 mg/dL (7-18); CREATININE 1.1 mg/dL (0.55-1.3); POTASSIUM 4.2 mmol/L (3.5-5.1)
--- NOTE | 2019-06-07 16:19 | EKG ---
Test Reason : Blood Pressure : / mmHG Vent. Rate : 058 BPM Atrial Rate : 058 BPM P-R Int : 206 ms QRS Dur : 088 ms QT Int : 410 ms P-R-T Axes : 035 -09 000 degrees QTc Int : 402 ms POOR DATA QUALITY, INTERPRETATION MAY BE ADVERSELY AFFECTED SINUS BRADYCARDIA POSSIBLE ANTERIOR INFARCT , AGE UNDETERMINED ABNORMAL ECG WHEN COMPARED WITH ECG OF 05-DEC-2017 17:12, BORDERLINE CRITERIA FOR ANTERIOR INFARCT ARE NOW PRESENT NO SIGNIFICANT CHANGE WAS FOUND Confirmed by VANITA DOVE MD ([id number]) on 06/07/2019 4:19:31 PM Referred By: Confirmed By:VANITA DOVE MD
== END 2019-06-07 16:07 | disposition home or self-care (01) ==
LOC: JER 10:57
DX: R07.89 Other chest pain (principal); M54.89 Other dorsalgia; M25.511 Pain in right shoulder; V54.5XXA Driver of pick-up truck or van injured in collision with heavy transport vehicle or bus in traffic accident, initial encounter; Y92.488 Other paved roadways as the place of occurrence of the external cause; Y93.89 Activity, other specified; Y99.8 Other external cause status; I25.10 Atherosclerotic heart disease of native coronary artery without angina pectoris; I10 Essential (primary) hypertension; Z95.5 Presence of coronary angioplasty implant and graft; N40.0 Benign prostatic hyperplasia without lower urinary tract symptoms; Z86.711 Personal history of pulmonary embolism; Z79.01 Long term (current) use of anticoagulants; Z95.828 Presence of other vascular implants and grafts
CPT/HCPCS: 36415; 71250-TC; 73030-TC-RT-FY; 74176-TC; 80053; 82550; 82553; 84484; 85025; 85610; 93005; 93010; 99283-25

== ENCOUNTER 2019-08-22 07:11 | Day surgery (SDC) | payer OTHER ==
[2019-08-21 12:50] VITALS: BMI 31.7
--- NOTE | 2019-08-22 08:15 | HP ---
Satellite [facility] - Chief Complaint Chief Complaint: right shoulder pain - Past Medical History Allergies/Adverse Reactions: Allergies Allergy/AdvReac Type Severity Reaction Status Date / Time No Known Allergies Allergy Verified 08/22/19 07:57 Cardiovascular: Yes: CAD Renal/: Yes: BPH - Current Medications Current Medications: Home Medications Medication Instructions Recorded Finasteride 5 mg PO DAILY 05/07/15 Lisinopril/Hydrochlorothiazide 1 each PO DAILY 05/07/15 [Lisinopril-Hctz 10-12.5 mg Tab] Metoprolol Succinate [Toprol XL -] 100 mg PO DAILY 05/07/15 Simvastatin [Zocor -] 20 mg PO HS 05/07/15 Tamsulosin HCl 0.4 mg PO BID 05/07/15 Warfarin Sodium [Coumadin] 7 mg PO DAILY 06/07/19 Tramadol HCl [Ultram] 25 mg PO PRN 08/21/19 Satellite Physical Exam - Physical Examination Vital Signs: Vital Signs Period Temp Pulse Resp BP Sys/Bear Pulse Ox Last 24 Hr 98.1 F 70 18 124/70 98 General Appearance: Well Nourished, Well Developed, Alert & Oriented x3 ENT: Clear Lung: Normal air movement Extremities: Other (right shoulder- + ttp, decr rom, + empoty can, + neer, + owens, nvi, MRI + rct) Neurological: Intact, Alert, Oriented Satellite Impression/Plan - Impression/Plan Impression: right shoulder rct Operative Procedure: right shoulder arthroscopy, RCR, SAD Date to be Performed: 08/22/19
[2019-08-22] MEDS ORDERED: MIDAZOLAM HCL 2 MG/2 ML SINGLE DOSE VIAL ONE ×2 (08:20)
[2019-08-22] MEDS ORDERED: ROPIVACAINE HCL 0.5% 30ML VIAL ONE (08:27)
[2019-08-22] MEDS ORDERED: ceFAZolin SODIUM 1 GM VIAL IVPB ONE (10:06)
[2019-08-22] MEDS ORDERED: PROPOFOL 20 ML ONE (10:45)
--- NOTE | 2019-08-22 10:51 | OP ---
Operative Note - Note: Operative Date: 08/22/19 ([facility]) Pre-Operative Diagnosis: right shoulder rct Operation: right shoulder arthroscopy with SAD Post-Operative Diagnosis: Same as Pre-op Surgeon: Adarsh Paredes Casting Inspector: Jason Crowe Anesthesia: General, Local Specimens Removed: shavings Estimated Blood Loss (mls): 5
[2019-08-22] MEDS ORDERED: ONDANSETRON 4 MG/2 ML VIAL IVPUSH PRN (11:33)
[2019-08-22] MEDS ORDERED: oxyCODONE HCL 5 MG TABLET PO PRN (11:33)
[2019-08-22] MEDS ORDERED: LACTATED RINGERS SOLUTION 1,000 ML IV SCH (11:45)
[2019-08-22 12:53] VITALS: TEMP 98.5
[2019-08-22 15:57] VITALS: BP 138/70; PULSE 72
--- NOTE | 2019-08-23 10:30 | OP ---
DATE OF OPERATION: 08/22/2019 PREOPERATIVE DIAGNOSIS: Right shoulder impingement syndrome and rotator cuff tear. POSTOPERATIVE DIAGNOSIS: Right shoulder impingement syndrome and rotator cuff tear. PROCEDURE: Right shoulder arthroscopy, subacromial decompression, and rotator cuff debridement. SURGEON: Gonzalez Bui MD TEEN COUNSELOR: GEOFF Baltazar ANESTHESIA: SONAL Titus, right interscalene block with LMA anesthesia. DRAINS: None. COMPLICATIONS: None. BLOOD LOSS: Minimal. BLOOD GIVEN: None. SPECIMENS: Arthroscopic shavings. INDICATIONS: This patient is a 64-year-old male with a preoperative diagnosis of right shoulder pain, impingement syndrome, rotator cuff tear, and possible labral tear. After understanding the potential risks, complications, alternatives, and benefits to surgery versus nonsurgical treatment, the patient elected to undergo this procedure. He does understand there is a chance that his pathology is not fixable in which he will have ongoing problems. DESCRIPTION OF PROCEDURE: Patient was brought to the operating room. Peripheral IV placed and IV sedation given, 2 g of IV Ancef were given. A right interscalene block was performed. LMA anesthesia was induced. He was placed into the beach chair position with ample padding throughout. The right upper extremity was prepped and draped in usual sterile fashion. The bony landmarks were marked out with a marking pen. A posterior portal was established. Diagnostic glenohumeral arthroscopy was performed. The patient had a significant full-thickness rotator cuff tear with complete retraction, complete exposure of the humeral head. It went well past the glenoid. Photographs were taken. He also had a 40% biceps tendon tear. The torn portion of the biceps tendon was balled up at the anterior aspect of the labrum. The radiologist may have thought this was a labral tear. The patient had glenohumeral osteoarthritis. There was a lot of intra-articular synovitis. An anterior portal was established under direct visualization with a spinal needle. A No. 15 blade and a green cannula were introduced into the joint. Using ArthroCare wand, I did a partial synovectomy and then with the straight shaver debrided the balled up portion of the biceps tendon. Did an additional partial synovectomy and debrided some frayed edges of the rotator cuff as well as some articular cartilage from the humeral head, which was loose. After this debridement chondroplasty, my opinion was that it was very unlikely we would be able to repair the rotator cuff. A lateral portal was established under direct visualization using a spinal needle. A No. 15 blade was utilized to make the incision. A green cannula introduced into the subacromial space. I then did a soft tissue debridement with the ArthroCare wand and the straight shaver including taking tissue off the undersurface of the acromion. After the soft tissue debridement, I used the 5.5-mm oval bur to take down a moderate size of subacromial spur. The distal clavicle was fine. A bony decompression and reverse was done with a straight shaver. The shaver was used to remove all bony debris as well. I put the arm through a range of motion. There was no point of contact. There is no more impingement. We tried to mobilize the rotator cuff. Used the grasper to pull it down, and it did not come even close to reaching the midpoint of the humeral head. Multiple attempts were made. Photographs were taken. Additional attempts were made to mobilize the anterior, middle, and posterior portion of the torn rotator cuff. Patient had complete rotator cuff tear with a completely exposed humeral head. There was significant osteoarthritis and no way to get any portion of the rotator cuff down to be able to be fixed. This looks like it has been there for well over 3 months. The patient has, and will continue to develop, rotator cuff arthropathy. The area was copiously irrigated and washed out, and all instrumentation and excess saline were removed. The arthroscopy portal was closed with 3-0 nylon sutures covered with Aquacel. The patient's arm was put into a sling. He was extubated, brought down out of the beach chair position. Total surgical time about 45 minutes. There were no complications during the case. The patient tolerated the procedure quite well and was brought to the ambulatory recovery room in stable condition. GONZALEZ BUI M.D. [id number]
--- NOTE | 2019-08-24 14:28 | PATH ---
Surgical Pathology Report Patient Name: GERRY SEN Med. Rec. #: [id number] /Age/Gender: 1955 (Age: 64) / M Account: [id number] Location: [facility] Taken: 08/22/2019 Received: 08/22/2019 Reported: 08/24/2019 Physicians: Adarsh Paredes M.D. Specimen(s) Received RIGHT SHOULDER SHAVINGS Clinical History Impingement syndrome and possible rotator cuff repair Final Diagnosis SHOULDER SHAVINGS, RIGHT, ARTHROSCOPY WITH DECOMPRESSION: FRAGMENTS OF BENIGN CARTILAGE, DENSE FIBROCONNECTIVE TISSUE, AND ADIPOSE TISSUE. Electronically Signed Kait Sanz M.D. Gross Description Received in formalin, labeled "right shoulder shavings," is a 1.0 x 0.5 x 0.1 cm. aggregate of byrd soft tissue fragments. The formalin is filtered and the specimen is entirely submitted in one cassette. 08/23/201908/23/2019
== END 2019-08-22 13:20 | disposition home or self-care (01) ==
LOC: JASU-SURG 07:11
PROVIDERS: ATTEND Orthopaedic Surgery
PROC: 0LQ14ZZ Repair Right Shoulder Tendon, Percutaneous Endoscopic Approach (ICD-10-PCS; 2019-08-22)
PROC: 0RNJ4ZZ Release Right Shoulder Joint, Percutaneous Endoscopic Approach (ICD-10-PCS; principal; 2019-08-22 09:00)
DX: M75.41 Impingement syndrome of right shoulder (principal); M75.101 Unspecified rotator cuff tear or rupture of right shoulder, not specified as traumatic
CPT/HCPCS: 88304-TC; 94760

== ENCOUNTER 2020-03-23 15:49 | Emergency (ER) | payer OTHER ==
--- NOTE | 2020-03-23 15:58 | PDOC ---
Rapid Medical Evaluation Time Seen by Provider: 03/23/20 15:50 Medical Evaluation: Allergies Allergy/AdvReac Type Severity Reaction Status Date / Time No Known Allergies Allergy Verified 08/22/19 07:57 03/23/20 15:54 I performed a brief in-person evaluation of this patient. Pt is a 65 y/o male who presents to the ED with complaint of left lower extremity/calf pain for the last several days. He does admit to being inactive since COVID. Pt takes Warfarin for PEs in the past. Pt has an IVC filter. He was concerned so he came to the ED for evaluation. Pertinent physical exam findings: L proximal calf tenderness to palpation, no size discrepancy I have ordered the following: doppler LLE, cbc, pt/inr, cmp Patient to proceed to ED for further evaluation. Discharge Disposition - Diagnosis Pain of left calf - Referrals - Patient Instructions - Post Discharge Activity
[2020-03-23 15:59] VITALS: BMI 33.4
[2020-03-23 16:58] LABS: BASO % 0.3 % (0-2.0); EOS % 2.7 % (0-4.5); HEMATOCRIT 46.2 % (35.4-49); HEMOGLOBIN 15.2 GM/dL (11.7-16.9); LYMPH % 8.8 % (8-40); MCH 30.2 pg (25.7-33.7); MEAN CELL VOLUME 91.7 fl (80-96); MEAN PLT VOLUME 8.4 fl (7.5-11.1); MONO % 11.6 % (3.8-10.2); NEUT % 76.6 % (42.8-82.8); PLATELET COUNT 159 K/MM3 (134-434); RBC 5.04 M/mm3 (4.00-5.60); RDW 13.8 % (11.9-15.9); WHITE BLOOD COUNT 11.9 K/mm3 (4.0-10.0)
--- NOTE | 2020-03-23 17:05 | PDOC ---
Attending Attestation - Resident Resident Name: Mercedez Albright - ED Attending Attestation I have performed the following: I have examined & evaluated the patient, The case was reviewed & discussed with the resident, I agree w/resident's findings & plan, Exceptions are as noted - HPI HPI: 03/23/20 17:04 This 65 yo male p/w left lower extremity calf pain.He has history of PE and takes Coumadin. He also has IVC filter Discharge - Discharge Information Clinical Impression/Diagnosis: Pain of left calf - Follow up/Referral Referrals: Tee Jerome MD [Primary Care Provider] - - Patient Discharge Instructions - Post Discharge Activity
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
[2020-03-23 17:21] LABS: INR 1.6 (0.83-1.09)
[2020-03-23 17:22] LABS: ALBUMIN 4.3 g/dl (3.4-5.0); BILIRUBIN,TOTAL 0.9 mg/dL (0.2-1); BLOOD UREA NITROGEN 18.7 mg/dL (7-18); CALCIUM 9.1 mg/dL (8.5-10.1); CREATININE 1.4 mg/dL (0.55-1.3); TOT PROT 7.6 g/dl (6.4-8.2)
[2020-03-23] MEDS ORDERED: APIXABAN 5 MG TABLET PO ONE (17:54)
[2020-03-23] MEDS ORDERED: APIXABAN 5 MG TABLET ONE (18:20)
[2020-03-23 18:48] VITALS: BP 127/80; PULSE 81; TEMP 98.1
== END 2020-03-23 19:01 | disposition home or self-care (01) ==
LOC: JER 15:49
DX: M79.662 Pain in left lower leg (principal); I82.409 Acute embolism and thrombosis of unspecified deep veins of unspecified lower extremity
CPT/HCPCS: 36415; 80053; 85025; 85610; 93971-TC; 99285-25

== ENCOUNTER 2023-12-11 11:33 | Emergency (ER) | payer OTHER ==
[2023-12-11 11:39] VITALS: RESP 18; TEMP 98; BMI 30.4
[2023-12-11 14:03] LABS: BASO % 1.2 % (0-2.0); HEMATOCRIT 43.6 % (35.4-49); HEMOGLOBIN 14.2 GM/dL (11.7-16.9); LYMPH % 15.1 % (8-40); MCH 29.6 pg (25.7-33.7); MCHC 32.6 g/dl (32.0-35.9); MEAN CELL VOLUME 90.8 fl (80-96); MEAN PLT VOLUME 7.9 fl (7.5-11.1); MONO % 11.2 % (3.8-10.2); NEUT % 68.5 % (42.8-82.8); PLATELET COUNT 182 10^3/uL (134-434); RDW 14.1 % (11.9-15.9); WHITE BLOOD COUNT 7.1 K/mm3 (4.0-10.0)
[2023-12-11 14:08] LABS: INR 1.7 (0.83-1.09); PROTHROMBIN TIME (PATIENT) 19.6 SEC (9.7-13.0)
[2023-12-11 14:10] LABS: ACTIVATED PTT 39.2 SECONDS (25.2-36.5)
[2023-12-11 14:17] LABS: POTASSIUM 4.2 mmol/L (3.5-5.1)
[2023-12-11 14:19] LABS: ALBUMIN 3.8 g/dl (3.4-5.0); BLOOD UREA NITROGEN 23.2 mg/dL (7-18); CALCIUM 9.3 mg/dL (8.5-10.1); MAGNESIUM 1.8 mg/dL (1.8-2.4)
[2023-12-11 14:22] LABS: CREATININE 1.3 mg/dL (0.55-1.3)
[2023-12-11 14:24] LABS: BILIRUBIN,TOTAL 0.3 mg/dL (0.2-1); TOT PROT 6.4 g/dl (6.4-8.2)
[2023-12-11 15:38] VITALS: BP 139/73; PULSE 52
== END 2023-12-11 15:38 | disposition home or self-care (01) ==
LOC: JER 11:33
DX: M79.672 Pain in left foot (principal); M77.32 Calcaneal spur, left foot
CPT/HCPCS: 36415; 73630-TC-LT; 80053; 83605; 83735; 85025; 85610; 85730; 93970-TC; 99285-25